=== PATIENT | female | born 1965 | race Caucasian/White ===

== ENCOUNTER 2017-01-18 14:45 | Emergency (ER) | payer MEDICAID, OTHER ==
[~2017-01-18 14:45] MED LIST: LACT30L PO; LEVO25TA9 PO; NALT50 PO; OMEP20 PO
[2017-01-20] MEDS ORDERED: SILVER SULFADIAZINE 1% 25 GM CREAM TP ONE (18:00)
== END 2017-01-18 15:23 | disposition left against medical advice (07) ==
LOC: EMS 14:47
DX: R55 Syncope and collapse (principal); R41.0 Disorientation, unspecified; F17.210 Nicotine dependence, cigarettes, uncomplicated
CPT/HCPCS: 99283

== ENCOUNTER 2017-03-02 00:26 | Emergency (ER) | payer OTHER ==
[~2017-03-02] VITALS: Ht 165.1 cm; Wt 77.0 kg
[~2017-03-02 00:26] MED LIST changes: -NALT50 PO; +NALT50TA6 PO
[2017-03-02 02:09] VITALS: BP 124/73
== END 2017-03-02 02:18 | disposition home or self-care (01) ==
LOC: EMS 00:27
DX: L03.116 Cellulitis of left lower limb (principal); L03.115 Cellulitis of right lower limb; R60.0 Localized edema; F17.210 Nicotine dependence, cigarettes, uncomplicated; Z59.0 Homelessness
CPT/HCPCS: 99283

== ENCOUNTER 2019-06-18 16:22 | Inpatient (IN) | payer OTHER ==
[~2019-06-18] VITALS: Ht 160 cm; Wt 72.5 kg
[2019-06-18] MEDS ORDERED: SODIUM CHLORIDE 0.9% 1,000 ML IV ONE ×2 (17:23→20:15)
[2019-06-18] MEDS ORDERED: MAGNESIUM SULFATE 2 GM, MVI, ADULT NO.1 WITH VIT K 10 ML, THIAMINE HCL 100 MG, FOLIC AC... IV ONE ×10 (17:30→22:45)
[2019-06-18 18:10] LABS: BASOPHILS % (AUTO) 1.1 % (0.0-2.0); EOSINOPHILS % (AUTO) 7.2 % (1.0-6.0); HEMATOCRIT 33.1 % (36-46); HEMOGLOBIN 10.9 g/dL (12.0-16.0); LYMPHOCYTES # (AUTO) 2.7 K/uL (1.0-4.8); LYMPHOCYTES % (AUTO) 51.1 % (22.0-44.0); MEAN CORPUSCULAR HEMOGLOBIN 25.5 pg (26.0-34.0); MEAN CORPUSCULAR HGB CONC 32.8 G/dL (31.0-37.0); MEAN CORPUSCULAR VOLUME 78 fL (80-100); MONOCYTES # (AUTO) 0.3 K/uL (0.1-1.0); MONOCYTES % (AUTO) 6.3 % (2.0-9.0); NEUTROPHILS # (AUTO) 1.8 K/uL (1.8-7.7); NEUTROPHILS % (AUTO) 34.3 % (40.0-70.0); PLATELET COUNT (AUTO) 82 K/uL (150-450); RED BLOOD CELL COUNT(AUTO) 4.25 MIL/uL (4.00-5.20); RED CELL DISTRIBUTION WIDTH 27.3 % (11.5-14.5)
[2019-06-18 18:31] LABS: ALANINE AMINOTRANSFERASE 125 U/L (12-78); ALBUMIN 2.6 g/dL (3.4-5.0); ALKALINE PHOSPHATASE 155 U/L (46-116); ANION GAP 8 mmol/L (8-16); ASPARTATE AMINOTRANSFERASE 227 U/L (15-37); BILIRUBIN,TOTAL 0.8 mg/dL (0.1-1.0); CARBON DIOXIDE 24 mmol/L (22-29); CHLORIDE 109 mmol/L (98-107); CREATININE 0.81 mg/dL (0.60-1.30); GLOMERULAR FILTR. RATE CALC > 60 mL/min (>60); GLUCOSE,RANDOM 105 mg/dL (70-110); LIPASE 266 U/L (73-393); SODIUM SERUM 141 mmol/L (136-145); TOTAL PROTEIN, SERUM 8.1 g/dL (6.4-8.2)
[2019-06-18 18:39] LABS: UREA NITROGEN, BLOOD 5 mg/dL (7-18)
[2019-06-18] MEDS ORDERED: ACETAMINOPHEN 325 MG TABLET PO PRN ×2 (22:15→22:45)
[2019-06-18] MEDS ORDERED: 0.9% SODIUM CHLORIDE 10 ML SYRINGE IVP PRN (22:15)
[2019-06-18] MEDS ORDERED: ONDANSETRON HCL 4 MG/2 ML VIAL IVP PRN ×2 (22:15→22:45)
[2019-06-18] MEDS ORDERED: LORazepam 2 MG/ML VIAL IVP PRN (22:45)
[2019-06-18] MEDS ORDERED: MAGNESIUM HYDROXIDE SUSPENSION 30 ML UDCUP PO PRN (22:45)
[2019-06-18] MEDS ORDERED: ZOLPIDEM TARTRATE 5 MG TABLET PO PRN (22:45)
[2019-06-18] MEDS ORDERED: BISACODYL 10 MG RECTAL RECTAL SUPPOSITORY PR PRN (22:45)
[2019-06-18 23:36] VITALS: BP 114/61
[2019-06-18] MEDS: SODIUM CHLORIDE 0.9% 1,000 ML IV SCH (23:57)
[2019-06-19 04:46] VITALS: BP 106/64
[2019-06-19 07:30] VITALS: BP 114/58
[2019-06-19 07:48] LABS: ALANINE AMINOTRANSFERASE 111 U/L (12-78); ALBUMIN 2.2 g/dL (3.4-5.0); ALKALINE PHOSPHATASE 136 U/L (46-116); ANION GAP 7 mmol/L (8-16); ASPARTATE AMINOTRANSFERASE 198 U/L (15-37); BILIRUBIN,TOTAL 0.8 mg/dL (0.1-1.0); CALCIUM, TOTAL 7.4 mg/dL (8.8-10.5); CARBON DIOXIDE 24 mmol/L (22-29); CHLORIDE 112 mmol/L (98-107); CREATININE 0.69 mg/dL (0.60-1.30); GLOMERULAR FILTR. RATE CALC > 60 mL/min (>60); GLUCOSE,RANDOM 107 mg/dL (70-110); POTASSIUM 3.8 mmol/L (3.5-5.1); SODIUM SERUM 143 mmol/L (136-145); UREA NITROGEN, BLOOD 5 mg/dL (7-18)
[2019-06-19] MEDS: HEPARIN SODIUM,PORCINE 5,000 UNITS/ML VIAL SQ SCH ×4 (09:07→23:28)
[2019-06-19] MEDS: DOCUSATE SODIUM 100 MG CAPSULE PO SCH ×2 (09:07→20:04)
[2019-06-19] MEDS: PANTOPRAZOLE SODIUM 40 MG DR TABLET PO SCH (09:09)
[2019-06-19] MEDS: HYDROCODONE/ACETAMINOPHEN 5-325 MG TABLET PO PRN ×3 (10:20→20:06)
[2019-06-19] MEDS: SODIUM CHLORIDE 0.9% 1,000 ML IV SCH (10:21)
[2019-06-19 10:43] LABS: BILIRUBIN,URINE NEGATIVE (NEGATIVE); GLUCOSE, URINE (UA) NEGATIVE (NEGATIVE); KETONES,URINE NEGATIVE (NEGATIVE); NITRATE,URINE NEGATIVE (NEGATIVE); PH,URINE 5.5 (5.0-8.0); PROTEIN,URINE NEGATIVE (NEGATIVE)
[2019-06-19 10:44] LABS: APPEARANCE,URINE HAZY (CLEAR); LEUKOCYTE ESTERASE ,URINE MODERATE (NEGATIVE); OCCULT BLOOD,URINE SMALL (NEGATIVE)
[2019-06-19 10:45] LABS: BACTERIA,URINE Moderate /HPF (None Seen); SQUAMOUS EPITHELIAL CELL,UR Many /LPF (None Seen)
[2019-06-19 10:48] LABS: AMPHET/METH SCREEN,URINE NEGATIVE (NEGATIVE); BARBITURATE SCREEN, URINE NEGATIVE (NEGATIVE); BENZODIAZEPINES SCREEN,URINE POSITIVE (NEGATIVE); CANNABINOID SCREEN,URINE NEGATIVE (NEGATIVE); COCAINE SCREEN,URINE NEGATIVE (NEGATIVE); METHADONE SCREEN, URINE NEGATIVE (NEGATIVE); OPIATE SCREEN,URINE NEGATIVE (NEGATIVE); PHENCYCLIDINE SCREEN,URINE NEGATIVE (NEGATIVE)
[2019-06-19 11:15] VITALS: BP 137/75
[2019-06-19] MEDS: ChlordiazePOXIDE HCL 25 MG CAPSULE PO SCH ×3 (12:30→23:29)
[2019-06-19 12:52] LABS: PHOSPHORUS 3.8 mg/dL (2.5-4.9)
[2019-06-19] MEDS: CefTRIAXone 1 GM/DEXTROSE 50 ML IV SCH (14:34)
[2019-06-19 15:20] VITALS: BP 150/84
[2019-06-19 19:49] VITALS: BP 137/74
[2019-06-19 23:37] VITALS: BP 144/96
[2019-06-20] MEDS: ChlordiazePOXIDE HCL 25 MG CAPSULE PO SCH ×2 (05:19→19:49)
[2019-06-20 05:29] VITALS: BP 135/78
[2019-06-20 07:00] VITALS: BP 128/75
[2019-06-20] MEDS: PANTOPRAZOLE SODIUM 40 MG DR TABLET PO SCH (08:32)
[2019-06-20] MEDS: DOCUSATE SODIUM 100 MG CAPSULE PO SCH ×3 (08:32→19:49)
[2019-06-20] MEDS: HYDROCODONE/ACETAMINOPHEN 5-325 MG TABLET PO PRN ×3 (08:32→23:18)
[2019-06-20] MEDS: HEPARIN SODIUM,PORCINE 5,000 UNITS/ML VIAL SQ SCH ×3 (08:33→23:13)
[2019-06-20] MEDS ORDERED: PNEUMOCOCCAL VACCINE POLYVALENT 0.5 ML VIAL [PPSV23] IM ONE (11:00)
[2019-06-20] MEDS ORDERED: INFLUENZA VIRUS VACCINE QVS 2019-20 (3YR+)/PF 60 MCG/0.5 ML SYRINGE IM ONE (11:00)
[2019-06-20 11:20] VITALS: BP 131/80
[2019-06-20] MEDS: CefTRIAXone 1 GM/DEXTROSE 50 ML IV SCH (12:12)
[2019-06-20] MEDS: SODIUM CHLORIDE 0.9% 1,000 ML IV SCH ×2 (12:13→14:12)
[2019-06-20 15:20] VITALS: BP 122/74
[2019-06-20 19:51] VITALS: BP 132/82
[2019-06-20 23:20] VITALS: BP 122/70
[2019-06-21 05:16] VITALS: BP 126/71
[2019-06-21 08:00] VITALS: BP 126/76
[2019-06-21] MEDS: DOCUSATE SODIUM 100 MG CAPSULE PO SCH ×2 (08:05→19:41)
[2019-06-21] MEDS: HEPARIN SODIUM,PORCINE 5,000 UNITS/ML VIAL SQ SCH ×3 (08:05→22:41)
[2019-06-21] MEDS: ChlordiazePOXIDE HCL 25 MG CAPSULE PO SCH ×2 (08:05→19:45)
[2019-06-21] MEDS: PANTOPRAZOLE SODIUM 40 MG DR TABLET PO SCH (08:05)
[2019-06-21] MEDS: SODIUM CHLORIDE 0.9% 1,000 ML IV SCH (08:34)
[2019-06-21] MEDS: HYDROCODONE/ACETAMINOPHEN 5-325 MG TABLET PO PRN (09:38)
[2019-06-21] MEDS: MORPHINE SULFATE 2 MG/ML SYRINGE IVP PRN ×2 (09:54→19:45)
[2019-06-21 11:41] VITALS: BP 119/70
[2019-06-21] MEDS: CefTRIAXone 1 GM/DEXTROSE 50 ML IV SCH (12:09)
[2019-06-21 15:30] VITALS: BP 125/76
[2019-06-21] MEDS: HYDROCORTISONE 1% 30 GM OINTMENT TP SCH (19:45)
[2019-06-21 20:01] VITALS: BP 139/87
[2019-06-22 00:17] VITALS: BP 128/87
[2019-06-22] MEDS: MORPHINE SULFATE 2 MG/ML SYRINGE IVP PRN ×4 (00:30→23:41)
[2019-06-22 04:00] VITALS: BP 124/69
[2019-06-22 07:45] VITALS: BP 120/68
[2019-06-22] MEDS: PANTOPRAZOLE SODIUM 40 MG DR TABLET PO SCH (08:00)
[2019-06-22] MEDS: ChlordiazePOXIDE HCL 25 MG CAPSULE PO SCH ×2 (08:00→20:19)
[2019-06-22] MEDS: HYDROCORTISONE 1% 30 GM OINTMENT TP SCH ×2 (08:01→20:19)
[2019-06-22] MEDS: HEPARIN SODIUM,PORCINE 5,000 UNITS/ML VIAL SQ SCH ×3 (08:01→23:24)
[2019-06-22] MEDS: DOCUSATE SODIUM 100 MG CAPSULE PO SCH ×2 (08:01→20:19)
[2019-06-22 11:45] VITALS: BP 118/80
[2019-06-22 15:30] VITALS: BP 139/82
[2019-06-22 20:18] VITALS: BP 139/85
[2019-06-23 05:30] VITALS: BP 128/69
[2019-06-23] MEDS: MORPHINE SULFATE 2 MG/ML SYRINGE IVP PRN (07:39)
[2019-06-23 07:52] VITALS: BP 102/64
[2019-06-23] MEDS: HYDROCORTISONE 1% 30 GM OINTMENT TP SCH (07:53)
[2019-06-23] MEDS: DOCUSATE SODIUM 100 MG CAPSULE PO SCH (07:55)
[2019-06-23] MEDS: ChlordiazePOXIDE HCL 25 MG CAPSULE PO SCH (08:22)
[2019-06-23] MEDS: HEPARIN SODIUM,PORCINE 5,000 UNITS/ML VIAL SQ SCH (08:23)
[2019-06-23] MEDS: PANTOPRAZOLE SODIUM 40 MG DR TABLET PO SCH (08:23)
[2019-06-23 11:33] VITALS: BP 103/61
== END 2019-06-23 13:40 | disposition home or self-care (01) | DRG 775 ==
LOC: EMS 16:23 → 4E 22:30
PROVIDERS: ADMIT Internal Medicine; ATTEND Internal Medicine
DX: F10.239 Alcohol dependence with withdrawal, unspecified (principal); F10.229 Alcohol dependence with intoxication, unspecified; E43 Unspecified severe protein-calorie malnutrition; G92 Toxic encephalopathy; E03.9 Hypothyroidism, unspecified; K21.9 Gastro-esophageal reflux disease without esophagitis; R21 Rash and other nonspecific skin eruption; Y90.8 Blood alcohol level of 240 mg/100 ml or more; D64.9 Anemia, unspecified; Z68.28 Body mass index [BMI] 28.0-28.9, adult; Z91.013 Allergy to seafood; Z90.49 Acquired absence of other specified parts of digestive tract; Z28.21 Immunization not carried out because of patient refusal; Z59.0 Homelessness
CPT/HCPCS: 80307; 83735; 84100; 87086; 97162; 97530; G0378; G0480; J0696; J1644; J2270; J3411; J3475; J3490; J7030

== ENCOUNTER 2020-03-27 09:00 | Emergency (ER) | payer OTHER ==
[~2020-03-27] VITALS: Ht 165.1 cm; Wt 74.0 kg
[2020-03-27] MEDS ORDERED: SODIUM CHLORIDE 0.9% 1,000 ML IV ONE (09:30)
[2020-03-27] MEDS ORDERED: PALI117D IM (09:33)
[2020-03-27] MEDS ORDERED: TRAZ-252 PO (09:33)
[2020-03-27] MEDS ORDERED: GABA-1216 PO (09:33)
[2020-03-27] MEDS ORDERED: HYDR-4031 PO (09:33)
[2020-03-27] MEDS ORDERED: IBUPROFEN 600 MG TABLET PO ONE (10:15)
[2020-03-27 11:25] LABS: BASOPHILS % (AUTO) 0.4 % (0.0-2.0); EOSINOPHILS % (AUTO) 1.2 % (1.0-6.0); HEMATOCRIT 32.6 % (36-46); HEMOGLOBIN 10.3 g/dL (12.0-16.0); LYMPHOCYTES # (AUTO) 1.8 K/uL (1.0-4.8); LYMPHOCYTES % (AUTO) 37.9 % (22.0-44.0); MEAN CORPUSCULAR HGB CONC 31.7 G/dL (31.0-37.0); MEAN CORPUSCULAR VOLUME 76 fL (80-100); MONOCYTES # (AUTO) 0.3 K/uL (0.1-1.0); MONOCYTES % (AUTO) 6.8 % (2.0-9.0); NEUTROPHILS # (AUTO) 2.5 K/uL (1.8-7.7); NEUTROPHILS % (AUTO) 53.7 % (40.0-70.0); RED BLOOD CELL COUNT(AUTO) 4.32 MIL/uL (4.00-5.20); RED CELL DISTRIBUTION WIDTH 19.7 % (11.5-14.5)
[2020-03-27 11:34] LABS: CALCIUM, TOTAL 8.3 mg/dL (8.8-10.5); CREATININE 1.2 mg/dL (0.60-1.30); POTASSIUM 3.7 mmol/L (3.5-5.1)
[2020-03-27 11:44] LABS: PLATELET COUNT (AUTO) 44 K/uL (150-450)
[2020-03-27 11:59] LABS: ALBUMIN 2.9 g/dL (3.4-5.0); BILIRUBIN,TOTAL 1.4 mg/dL (0.1-1.0); TOTAL PROTEIN, SERUM 8.1 g/dL (6.4-8.2)
[2020-03-27 13:30] LABS: APPEARANCE,URINE CLOUDY (CLEAR); GLUCOSE, URINE (UA) NEGATIVE (NEGATIVE); KETONES,URINE NEGATIVE (NEGATIVE); LEUKOCYTE ESTERASE ,URINE NEGATIVE (NEGATIVE); NITRATE,URINE NEGATIVE (NEGATIVE); OCCULT BLOOD,URINE SMALL (NEGATIVE); PH,URINE 5.5 (5.0-8.0); PROTEIN,URINE SEE CONFIRM (NEGATIVE)
[2020-03-27 13:31] LABS: BILIRUBIN,URINE PRELIM. POSITIVE (NEGATIVE)
[2020-03-27 13:33] LABS: AMPHET/METH SCREEN,URINE POSITIVE (NEGATIVE); BARBITURATE SCREEN, URINE NEGATIVE (NEGATIVE); BENZODIAZEPINES SCREEN,URINE POSITIVE (NEGATIVE); CANNABINOID SCREEN,URINE NEGATIVE (NEGATIVE); COCAINE SCREEN,URINE POSITIVE (NEGATIVE); METHADONE SCREEN, URINE NEGATIVE (NEGATIVE); OPIATE SCREEN,URINE POSITIVE (NEGATIVE)
[2020-03-27 13:34] LABS: SULFOSALICYLIC ACID,URINE 4+ (Negative)
[2020-03-27 13:35] LABS: BACTERIA,URINE Many /HPF (None Seen); PHENCYCLIDINE SCREEN,URINE NEGATIVE (NEGATIVE); RBC,URINE 0-2 /HPF (0-2); SQUAMOUS EPITHELIAL CELL,UR Few /LPF (None Seen)
[2020-03-27 17:55] VITALS: BP 105/75
== END 2020-03-27 18:12 | disposition home or self-care (01) ==
LOC: EMS 09:01
DX: S82.842A Displaced bimalleolar fracture of left lower leg, initial encounter for closed fracture (principal); F15.10 Other stimulant abuse, uncomplicated; F14.10 Cocaine abuse, uncomplicated; F10.129 Alcohol abuse with intoxication, unspecified; X50.9XXA Other and unspecified overexertion or strenuous movements or postures, initial encounter; Y93.89 Activity, other specified; Y92.89 Other specified places as the place of occurrence of the external cause; Y99.8 Other external cause status
CPT/HCPCS: 29515; 36415; 73610; 80053; 80307; 81001; 82550; 85025; 87086; 99284; G0480